=== PATIENT | male | born 1975 | race American Indian/Alaskan Native ===

== ENCOUNTER 2016-06-18 00:08 | Observation (INO) | payer MEDICAID ==
[2016-06-18 00:47] VITALS: BMI 23.3
--- NOTE | 2016-06-18 01:09 | ED PDOC ---
Arrival/HPI - General Time Seen by Provider: 06/18/16 00:33 Historian: Patient - History of Present Illness Narrative History of Present Illness (Text): 06/18/16 00:30 Surendra Ingram is a 41 year old male who presents to the emergency department via EMS for public intoxication. Patient admits to drinking throughout the day. Denies any somatic or psychological complaints. Time/Duration: 4-6 hours Symptom Onset: Gradual Symptom Course: Unchanged Severity Level: Mild Activities at Onset: Light Past Medical History - Provider Review Nursing Documentation Reviewed: Yes - Past Medical History Past Medical History: No Previous - Psychiatric Hx Depression: No Hx Emotional Abuse: No Hx Physical Abuse: No Hx Substance Use: Yes - Past Surgical History Past Surgical History: No Previous - Suicidal Assessment Feels Threatened In Home Enviroment: No Family/Social History - Physician Review Nursing Documentation Reviewed: Yes Family/Social History: No Known Family HX Hx Alcohol Use: Yes Hx Substance Use: Yes Substance used: CANNABIS Hx Substance Use Treatment: No Allergies/Home Meds Allergies/Adverse Reactions: Allergies No Known Allergies Allergy (Unverified 06/18/16 00:47) Home Medications: Home Meds Medication Instructions Recorded Confirmed No Known Home Med [No Known Home 01/23/13 01/23/13 Med] Review of Systems - Physician Review All systems were reviewed & negative as marked: Yes - Review of Systems Constitutional: Normal. absent: Fatigue, Fevers Respiratory: Normal. absent: SOB, Cough Cardiovascular: Normal. absent: Chest Pain, Palpitations Gastrointestinal: Normal. absent: Abdominal Pain, Diarrhea, Nausea, Vomiting Genitourinary Male: Normal Psychiatric: Other (intoxicated ) Physical Exam Vital Signs Reviewed: Yes Vital Signs Temp Pulse Resp BP Pulse Ox 06/18/16 01:40 97.7 F 84 18 132/80 97 Temperature: Afebrile Blood Pressure: Normal Pulse: Regular Respiratory Rate: Normal Appearance: Positive for: Well-Appearing, Non-Toxic, Comfortable Pain Distress: None Mental Status: Positive for: Alert and Oriented X 3 - Systems Exam Head: Present: Atraumatic, Normocephalic Pupils: Present: PERRL Extroacular Muscles: Present: EOMI Conjunctiva: Present: Normal Respiratory/Chest: Present: Clear to Auscultation, Good Air Exchange. No: Respiratory Distress, Accessory Muscle Use Cardiovascular: Present: Regular Rate and Rhythm, Normal S1, S2. No: Murmurs Abdomen: Present: Normal Bowel Sounds. No: Tenderness, Distention, Peritoneal Signs Upper Extremity: Present: Normal Inspection. No: Cyanosis, Edema Lower Extremity: Present: Normal Inspection. No: Edema Neurological: Present: GCS=15, CN II-XII Intact, Speech Normal Skin: Present: Warm, Dry, Normal Color. No: Rashes Psychiatric: Present: Alert, Oriented x 3, Intoxicated Medical Decision Making ED Course and Treatment: 06/18/16 00:30 Impression: A 41 year old male who presents to the emergency department for public intoxication. Progress Notes: 06/18/16 00:[address] patient on EDOBS for alcohol intoxication. ED OBSERVATION Discharge: Yes Date of observation admission: 06/18/16 Time of observation admission: 00:30 - Observation admission statement Patient is being placed in observation because:: Alcohol Intoxication - Goals of Observation Goals of observation are:: Awaiting sobriety and reevaluation. - Scribe Statement The provider has reviewed the documentation as recorded by the José Miguel Louise Provider Attestation: All medical record entries made by the José Miguel were at my direction and personally dictated by me. I have reviewed the chart and agree that the record accurately reflects my personal performance of the history, physical exam, medical decision making, and the department course for this patient. I have also personally directed, reviewed, and agree with the discharge instructions and disposition. Disposition/Present on Arrival - Present on Arrival Any Indicators Present on Arrival: No History of DVT/PE: No History of Uncontrolled Diabetes: No Urinary Catheter: No History Surgical Site Infection Following: None - Disposition Have Diagnosis and Disposition been Completed?: Yes Diagnosis: Alcohol intoxication Disposition: HOME/ ROUTINE Disposition Time: 07:25 Patient Plan: Discharge Condition: GOOD
[2016-06-18 01:41] VITALS: BP 132/80; PULSE 84; RESP 18; TEMP 97.7; O2SAT 97
== END 2016-06-19 08:07 | disposition home or self-care (01) ==
LOC: ED 00:08 → EROBSV 00:25 → ED 08:07
PROVIDERS: ADMIT Emergency Medicine; ATTEND Emergency Medicine
DX: F10.129 Alcohol abuse with intoxication, unspecified (principal); Y90.9 Presence of alcohol in blood, level not specified
CPT/HCPCS: 99282; G0378

== ENCOUNTER 2017-04-23 20:05 | Emergency (ER) | payer SELFPAY ==
[2017-04-23 20:17] VITALS: BMI 30.9
--- NOTE | 2017-04-23 20:26 | ED PDOC ---
Arrival/HPI - General Time Seen by Provider: 04/23/17 20:23 Historian: Patient - History of Present Illness Narrative History of Present Illness (Text): 04/23/17 20:24 42yo male present to ED requesting STD test. Patient states he was treated at [facility] last week and test was ordered. He states he came to ED to make sure that he was treated right, requesting another test. He however denies penile discharge, abdominal pain, fever, back pain, any other complaint. Past Medical History - Provider Review Nursing Documentation Reviewed: Yes - Past Medical History Past Medical History: No Previous - Psychiatric Hx Depression: No Hx Emotional Abuse: No Hx Physical Abuse: No Hx Substance Use: Yes - Past Surgical History Past Surgical History: No Previous - Suicidal Assessment Feels Threatened In Home Enviroment: No Family/Social History - Physician Review Nursing Documentation Reviewed: Yes Family/Social History: Unknown Family HX Smoking Status: Unknown If Ever Smoked Hx Alcohol Use: Yes Hx Substance Use: Yes Substance used: CANNABIS Hx Substance Use Treatment: No Allergies/Home Meds Allergies/Adverse Reactions: Allergies No Known Allergies Allergy (Verified 04/23/17 20:17) Home Medications: Home Meds Medication Instructions Recorded Confirmed No Known Home Med [No Known Home 01/23/13 04/23/17 Med] Review of Systems - Physician Review All systems were reviewed & negative as marked: Yes - Review of Systems Constitutional: Normal Eyes: Normal ENT: Normal Respiratory: Normal Cardiovascular: Normal Gastrointestinal: Normal Genitourinary Male: Normal, Other (STD test) Musculoskeletal: Normal Skin: Normal Neurological: Normal Endocrine: Normal Hemo/Lymphatic: Normal Psychiatric: Normal Physical Exam Vital Signs Reviewed: Yes Vital Signs Temp Pulse Resp BP Pulse Ox 04/23/17 20:29 98.3 F 86 18 123/73 100 Temperature: Afebrile Blood Pressure: Normal Pulse: Regular Respiratory Rate: Normal Appearance: Positive for: Well-Appearing, Non-Toxic, Comfortable Pain Distress: None Mental Status: Positive for: Alert and Oriented X 3 - Systems Exam Head: Present: Atraumatic, Normocephalic Pupils: Present: PERRL Extroacular Muscles: Present: EOMI Conjunctiva: Present: Normal Mouth: Present: Moist Mucous Membranes Neck: Present: Normal Range of Motion Respiratory/Chest: Present: Clear to Auscultation, Good Air Exchange. No: Respiratory Distress, Accessory Muscle Use Cardiovascular: Present: Regular Rate and Rhythm, Normal S1, S2. No: Murmurs Abdomen: Present: Normal Bowel Sounds. No: Tenderness, Distention, Peritoneal Signs Back: Present: Normal Inspection Upper Extremity: Present: Normal Inspection. No: Cyanosis, Edema Lower Extremity: Present: Normal Inspection. No: Edema Neurological: Present: GCS=15, CN II-XII Intact, Speech Normal Skin: Present: Warm, Dry, Normal Color. No: Rashes Psychiatric: Present: Alert, Oriented x 3, Normal Insight, Normal Concentration Medical Decision Making ED Course and Treatment: 04/23/17 22:37 Spoke the slab installer and she states she didn't get the urine. the RN however stated that she sent urine sample to the lab. Pt was already DC from the ED at this time. Disposition/Present on Arrival - Present on Arrival Any Indicators Present on Arrival: No History of DVT/PE: No History of Uncontrolled Diabetes: No Urinary Catheter: No History Surgical Site Infection Following: None - Disposition Have Diagnosis and Disposition been Completed?: Yes Diagnosis: Venereal disease screening Disposition: HOME/ ROUTINE Disposition Time: 20:35 Patient Plan: Discharge Condition: STABLE Additional Instructions: Follow up with medical record in 3daysfor your result Return to ED for any new symptoms Referrals: [facility] [Outside] - Follow up with primary Forms: [employer] (Urdu)
[2017-04-23 20:30] VITALS: BP 123/73; PULSE 86; RESP 18; TEMP 98.3; O2SAT 100
== END 2017-04-23 21:00 | disposition home or self-care (01) ==
LOC: ED 20:05
DX: Z11.3 Encounter for screening for infections with a predominantly sexual mode of transmission (principal)